=== PATIENT | male | born 1985 | race Caucasian/White ===

== ENCOUNTER 2016-04-13 07:45 | Emergency (ER) | payer OTHER ==
--- NOTE | 2016-04-13 08:03 | UCPHY ---
H & P Patient Type: New HPI/ROS: CHIEF COMPLAINT: Penile discharge, urethral itchiness. HISTORY OF PRESENT ILLNESS: The patient is a 30-year-old male who presents with white penile discharge and urethral itchiness since yesterday. He had unprotected sex with a female 2 weeks ago. He does not know her history. He does not have a rash in his groin and no groin lymphadenopathy. He denies testicular pain or swelling. He has no prior STI history. No fever, chills, chest pain, shortness of breath, palpitations, vomiting, diarrhea, urinary complaints, headache, lightheadedness. No dysuria, frequency, hematuria, flank pain. REVIEW OF SYSTEMS: Aside from elements discussed in the HPI, a comprehensive 10-point review of systems was reviewed and is negative. PAST MEDICAL HISTORY: Denies. SOCIAL HISTORY: Nonsmoker. GENERAL APPEARANCE: Alert, no acute distress. FOCUSED EXAM OF MALE : Normal male external genitalia. No testicular swelilng or tenderness. No lesions, no penile discharge, no ulcers or sores. Portions of this note were transcribed by a medical delivery technician. I personally performed a history, physical exam, medical decision making, and confirmed accuracy of information the transcribed note. Constitutional: Initial Vital Signs Temperature (C) 36.6 C 04/13/16 08:03 Heart Rate 83 04/13/16 08:03 Respiratory Rate 18 04/13/16 08:03 Blood Pressure 145/83 H 04/13/16 08:03 O2 Sat (%) 97 04/13/16 08:03 O2 Delivery Mode Room Air Allergies/Adverse Reactions: No Known Allergies Allergy (Unverified 04/13/16 08:01) Home Medications: Medication Instructions Recorded None 06/30/09 Medical Decision Making ED Course/Re-evaluation: 250mg IM Ceftriaxone and 1gm PO Azithromycin ordered. Dirty urine for gonorrhea and chlamydia was sent. Blood for syphilis RPR was sent. Patient's urine demonstrates white cells, some red cells, bacteria, mucus. Patient has minimal urinary tract infection symptoms. Urine was sent for culture. Patient was informed that if the culture is positive for a urinary tract infection, he will be contacted. Differential Diagnosis: Differential diagnoses for the patient's symptom complex was considered including but not limited to sexually transmitted disease, urinary tract infection, prostatitis, epididymitis, Chlamydia, gonorrhea, syphilis. - Data Points Laboratory Results: 04/13/16 04/13/16 08:38 08:30 Urine Color YELLOW Urine Appearance CLEAR Urine pH 6.0 (5.0-7.5) Ur Specific [place] 1.025 (1.002-1.030) Urine Protein NEGATIVE (NEGATIVE) Urine Ketones NEGATIVE (NEGATIVE) Urine Blood TRACE H (NEGATIVE) Urine Nitrate NEGATIVE (NEGATIVE) Urine Bilirubin NEGATIVE (NEGATIVE) Urine Urobilinogen 0.2 EU (0.2-1.0) Ur Leukocyte Esterase NEGATIVE (NEGATIVE) Urine RBC 3-5 H /hpf (0-3) Urine WBC 25-50 H /hpf (0-3) Ur Epithelial Cells TRACE /lpf (NONE-1+) Urine Bacteria 1+ H /hpf (NONE SEEN) Urine Mucus 2+ H /lpf (NONE-1+) Urine Glucose NEGATIVE (NEGATIVE) RPR Pending C.trachomatis RNA (TMA) Pending N.gonorrhoeae RNA (TMA) Pending Medications Given: Discontinued Medications Azithromycin (Zithromax) 1,000 mg PO EDNOW ONE PRN Reason: Protocol Stop: 04/13/16 08:14 Last Admin: 04/13/16 08:38 Dose: 1,000 mg Ceftriaxone Sodium (Rocephin 250mg Vial) 250 mg IM EDNOW ONE PRN Reason: Protocol Stop: 04/13/16 08:14 Last Admin: 04/13/16 08:38 Dose: 250 mg Departure - Departure Disposition: Home, Routine, Self-Care Clinical Impression: Penile discharge Condition: Good Instructions: Condom Use (ED), Sexually Transmitted Diseases (ED) Additional Instructions: Call Dr. Linares, outpatient medicine, today to set up a follow up appointment. Your urine has been sent to the lab for culturing. You will be notified if it returns positive. Return to Urgent Care or visit the ER if you experience serious worsening of condition. Referrals: Edis Linares, [Doctor of Osteopathy] - As per Instructions - PQRS PQRS Measurement: Not applicable. Report Scribed for: Milvia Dumont Report Scribed by: Vic Jefferson Date of Report: 04/13/16 Time of Report: 07:56
[2016-04-13 08:05] VITALS: BP 145/83; PULSE 83; RESP 18; TEMP 97.9; O2SAT 97
[2016-04-13] MEDS ORDERED: cefTRIAXone 250 MG VIAL IM ONE (08:13)
[2016-04-13] MEDS ORDERED: AZITHROMYCIN 250 MG TAB PO ONE (08:13)
[2016-04-13 08:42] LABS: COLOR YELLOW; LEUKOCYTE ESTERASE,URINE NEGATIVE (NEGATIVE); NITRITE,URINE NEGATIVE (NEGATIVE)
[2016-04-13 08:53] LABS: BACTERIA 1+ /hpf (NONE SEEN); MUCUS 2+ /lpf (NONE-1+); WBC,URINE 25-50 /hpf (0-3)
[2016-04-14 14:12] LABS: CHLAMYDIA AMPLIFICATION GENPRB POSITIVE (NEGATIVE)
== END 2016-04-13 09:03 | disposition home or self-care (01) ==
LOC: CED 07:45
DX: R36.9 Urethral discharge, unspecified (principal); Z20.2 Contact with and (suspected) exposure to infections with a predominantly sexual mode of transmission
CPT/HCPCS: 81003-PO; 81015-PO; 96372-PO; 99202-PO; G0463-PO; J0696

== ENCOUNTER 2016-05-02 17:42 | Emergency (ER) | payer OTHER ==
--- NOTE | 2016-05-02 18:18 | UCPHY ---
H & P Time Seen by Provider: 05/02/16 18:09 Patient Type: Established HPI/ROS: CHIEF COMPLAINT: Recheck chlamydia HISTORY OF PRESENT ILLNESS: 30-year-old male seen in the urgent care 04/13/2016 for subsequent diagnosis of chlamydia urethritis. At his urgent care of visit he was given azithromycin and Rocephin. He remains symptomatic few days later incised PCP and was given 7 days of doxycycline which he completed 4 days ago. He is in the urgent care currently to be re-evaluated for chlamydia to make sure it has gone. He is requesting retesting. He is asymptomatic. He denies: Dysuria, hematuria, urethral discharge, penile or scrotal lesions. He has not had sexual intercourse since being seen in the urgent care 04/13/2016. PHYSICAL EXAM (Prior to examination, patient consented to physical exam, hands were washed and my usual and customary physical exam procedures followed) 1) GENERAL: Well-developed, well-nourished, alert and oriented. Appears to be in no acute distress. 2) HEAD: Normocephalic 3) HEENT: sclera anicteric 4) LUNGS: Breathing comfortably. [5) : Circumcised male, no penile or scrotal lesions, no urethral discharge , no erythema, cremasteric reflex present bilaterally Smoking Status: Never smoked Allergies/Adverse Reactions: No Known Allergies Allergy (Unverified 04/13/16 08:01) Home Medications: Medication Instructions Recorded None 06/30/09 MDM/Departure - [facility] ED Course/Re-evaluation: GC chlamydia diagnostic testing has been obtained. No further intervention at this time as he has completed 2 rounds of antibiotics and is currently asymptomatic. He will call the urgent care in few days for his results. - Depart Disposition: Home, Routine, Self-Care Clinical Impression: Chlamydia Condition: Good Instructions: Chlamydia (ED) Additional Instructions: Return to Urgent Care if you developed pain with urination, discharge from the penis or any other symptoms that concern you. Please practice safer sexual encounters in the future Referrals: Grzegorz Oconnell DO [Primary Care Provider] - 5-7 days, call for appt. - PQRS PQRS Measurement: n/a
[2016-05-02 18:29] VITALS: BP 123/75; PULSE 79; RESP 16; TEMP 98.4; O2SAT 95
[2016-05-03 12:46] LABS: CHLAMYDIA AMPLIFICATION GENPRB NEGATIVE (NEGATIVE)
== END 2016-05-02 18:33 | disposition home or self-care (01) ==
LOC: CED 17:42
DX: A74.9 Chlamydial infection, unspecified (principal)
CPT/HCPCS: 99214-PO; G0463-PO

== ENCOUNTER 2016-07-10 17:11 | Emergency (ER) | payer OTHER ==
[2016-07-10 17:23] VITALS: BP 121/64; PULSE 77; RESP 16; TEMP 98.2; O2SAT 96
--- NOTE | 2016-07-10 18:39 | UCPHY ---
H & P Time Seen by Provider: 07/10/16 18:26 Patient Type: Established HPI/ROS: This patient presents with a penile lesion. He noticed this spot for the past few days that has no associated symptoms. He does report a new sexual partner but reports condom use. They have had oral sex. He is heterosexual. He denies any other associated symptoms. No exacerbating or alleviating factors. ROS: No fevers. No urethral discharge. No testicular pain or swelling. No back pain. No nausea vomiting. No other skin lesions. 7 point ROS is otherwise negative. Past Medical/Surgical History: Otherwise healthy Smoking Status: Never smoked Physical Exam: Physical Exam Vital signs are normal. General: No acute distress HEENT: No lip lesions. Eyes: Pupils equal and react to light. Extraocular motions are intact. Lungs: No respiratory distress. Cardiac: Brisk capillary refill is intact throughout. Skin: No rash or pallor. : Circumcised penis with a single 5 mm papule to the underside of the penile shaft without significant erythema tenderness or fluctuance. No vesicular lesions. No urethral discharge. No testicular swelling or tenderness or masses detected. Neuro: Alert and oriented Initial differential diagnosis: Acne vulgaris, infected hair follicle, doubt STD Constitutional: Initial Vital Signs Temperature (C) 36.8 C 07/10/16 17:20 Heart Rate 77 07/10/16 17:20 Respiratory Rate 16 07/10/16 17:20 Blood Pressure 121/64 H 07/10/16 17:20 O2 Sat (%) 96 07/10/16 17:20 O2 Delivery Mode Room Air Allergies/Adverse Reactions: No Known Allergies Allergy (Verified 05/02/16 18:26) Home Medications: Medication Instructions Recorded None 06/30/09 Doxycycline Hyclate 100 mg PO BID #20 capsule 07/10/16 MDM/Departure - MDM Medications Given: Discontinued Medications Doxycycline Hyclate (Doxycycline Hyclate) 100 mg PO EDNOW ONE PRN Reason: Protocol Stop: 07/10/16 18:41 Last Admin: 07/10/16 18:52 Dose: 100 mg ED Course/Re-evaluation: Patient requested that he urinalysis also be done, chlamydia and GC. Provide of split specimen. Our nurseAndrea head may a urinalysis that was positive for UTI stating that was this patient's urinalysis. Based on this patient is treated with 1st dose of doxycycline and told that he had a UTI, likely prostatitis. However after the patient's departure upon documentation this patient's urinalysis now is read as normal in the lab. It is too late at this time to call the patient home. I will call him in the morning and counseled him not to fill the script doxycycline. The earlier "positive UA" Was evidently a clerical error. I counseled the patient that the bump on his penis does not appear to be consistent with an STD and may resolve over the next handful of days. He will follow up with Urology for further evaluation if he has any ongoing symptoms. - Depart Disposition: Home, Routine, Self-Care Clinical Impression: Penile lesion Clinical Impression: (Ruled Out): UTI (urinary tract infection) Condition: Good Instructions: Urinary Tract Infection in Men (ED) Additional Instructions: Diagnosis: UTIs 2. Penile lesion Plan: Doxycycline antibiotic Drink plenty fluids Return for any significant worsening If he have any new worsening of penile lesions and follow up with Urology for further evaluation. Use a condom until your studies are back a couple days Prescriptions: Doxycycline Hyclate 100 mg PO BID #20 capsule Referrals: Grzegorz Oconnell DO [Primary Care Provider] - As per Instructions Boogie Elizabeth MD [Medical Doctor] - As per Instructions - PQRS PQRS Measurement: NA
[2016-07-10] MEDS ORDERED: DOXYCYCLINE HYCLATE 100 MG CAP/TAB PO ONE (18:40)
[2016-07-10 18:47] LABS: COLOR YELLOW; LEUKOCYTE ESTERASE,URINE NEGATIVE (NEGATIVE); NITRITE,URINE NEGATIVE (NEGATIVE); PH,URINE 7.5 (5.0-7.5)
[2016-07-12 11:46] LABS: CHLAMYDIA AMPLIFICATION GENPRB NEGATIVE (NEGATIVE)
== END 2016-07-10 18:55 | disposition home or self-care (01) ==
LOC: CED 17:11
DX: N50.9 Disorder of male genital organs, unspecified (principal)
CPT/HCPCS: 81003-PO; 99214-PO; G0463-PO